=== PATIENT | male | born 1965 | race African-American/Black ===

== ENCOUNTER 2017-01-31 18:32 | Emergency (ER) | payer SELFPAY ==
[~2017-01-31] VITALS: Ht 175.3 cm; Wt 78.4 kg
[~2017-01-31 18:32] MED LIST: BACTRIM,SEPT1 TABLET PO; TRAMADOL HCL50 MG PO
[2017-01-31 19:10] LABS: HEMATOCRIT 40.1 % (38.0-50.0); MCH 30.3 PG (29.0-34.0); MCHC 34.7 G/DL (30.0-36.0); MCV 87.6 FL (86-99); MEAN PLAT.VOLUME 10.4 uM^3 (9.0-12.4); PLATELET COUNT 217 K/uL (156-360); RBC DIS.WIDTH-CV 14.1 % (11.8-14.6); RBC DIS.WIDTH-SD 45.4 % (39-53); RED BLOOD COUNT 4.58 M/uL (4.00-5.50); WHITE BLOOD COUNT 7.5 K/uL (4.1-10.2)
[2017-01-31 19:18] LABS: CHLORIDE 104 mEq/L (99-109); POTASSIUM 3.5 mEq/L (3.7-5.4); SODIUM 141 mEq/L (136-147)
[2017-01-31 19:21] LABS: GLUCOSE 71 mg/dL (70-99)
[2017-01-31 19:22] LABS: ANION GAP 17 MEQ/L (2-14)
[2017-01-31 19:23] LABS: TOTAL BILIRUBIN 0.4 mg/dL (0.0-1.0)
[2017-01-31 19:24] LABS: ALKALINE PHOSPHATASE 80 IU/L (3-129); SERUM ETHYL ALCOHOL 100 mg/dL
[2017-01-31 19:25] LABS: GFR ESTIMATE (CALCULATED) > 59 mL/min/
[2017-01-31 19:26] LABS: UREA NITROGEN (BUN) 14 mg/dL (9-23)
[2017-01-31 19:41] LABS: ADD MIUA? NO; BILIRUBIN NEGATIVE; BLOOD NEGATIVE; COLOR YELLOW ((YELLOW)); GLUCOSE (STRIP) NEGATIVE; KETONES NEGATIVE; LEUKOCYTES NEGATIVE; NITRITE NEGATIVE; PROTEIN (STRIP) NEGATIVE; SPECIFIC GRAVITY 1.025 (1.000-1.030); UCUL ADDED? NO; UROBILINOGEN 0.2 MG/DL (0.2-1.0)
[2017-01-31] MEDS ORDERED: MOTRIN600 MG PO (21:07)
[2017-01-31 21:25] VITALS: BP 143/87
== END 2017-01-31 21:34 | disposition home or self-care (01) ==
LOC: EME 18:32
PROVIDERS: Emergency Medicine
DX: S20.229A Contusion of unspecified back wall of thorax, initial encounter (principal); S16.1XXA Strain of muscle, fascia and tendon at neck level, initial encounter; E04.1 Nontoxic single thyroid nodule; N28.1 Cyst of kidney, acquired; V13.4XXA Pedal cycle driver injured in collision with car, pick-up truck or van in traffic accident, initial encounter; Y92.410 Unspecified street and highway as the place of occurrence of the external cause; Y93.55 Activity, bike riding; F17.200 Nicotine dependence, unspecified, uncomplicated
CPT/HCPCS: 70450; 71260; 72125; 72129; 72132; 74177; 80053; 81003; 85027; 99281; 99285; G0480; J7030

== ENCOUNTER 2017-07-25 11:53 | Emergency (ER) | payer SELFPAY ==
[~2017-07-25] VITALS: Ht 175.3 cm; Wt 80.9 kg
[~2017-07-25 11:53] MED LIST changes: +MOTRIN600 MG PO
[2017-07-25 13:44] VITALS: BP 120/99
== END 2017-07-25 13:45 | disposition home or self-care (01) ==
LOC: EME 11:53
DX: S61.012A Laceration without foreign body of left thumb without damage to nail, initial encounter (principal); W26.0XXA Contact with knife, initial encounter; Y93.G1 Activity, food preparation and clean up; Z23 Encounter for immunization; F17.200 Nicotine dependence, unspecified, uncomplicated
CPT/HCPCS: 99281; 99283